=== PATIENT | female | born 1980 | race Caucasian/White ===

== ENCOUNTER 2020-10-03 09:18 | Outpatient (CLI) | payer OTHER ==
[~2020-10-03 09:18] MED LIST: TYLENOL-CODEINE1 TAB PO
== END 2020-10-03 09:27 | disposition home or self-care (01) ==
LOC: SONOGRAMA 09:18
PROVIDERS: ATTEND Pathology Anatomic Pathology & Clinical Pathology
DX: E04.2 Nontoxic multinodular goiter (principal)